=== PATIENT | female | born 1960 | race African-American/Black ===

== ENCOUNTER 2016-04-04 14:28 | Outpatient (RCR) | payer MEDICARE, BC | END 2016-05-02 | disposition home or self-care (01) | LOC: WCC 14:28 | DX: L97.523 Non-pressure chronic ulcer of other part of left foot with necrosis of muscle (principal); E08.621 Diabetes mellitus due to underlying condition with foot ulcer; E08.22 Diabetes mellitus due to underlying condition with diabetic chronic kidney disease; I70.245 Atherosclerosis of native arteries of left leg with ulceration of other part of foot; N18.6 End stage renal disease; Z89.422 Acquired absence of other left toe(s); Z89.421 Acquired absence of other right toe(s); T86.828 Other complications of skin graft (allograft) (autograft); I10 Essential (primary) hypertension; Z90.710 Acquired absence of both cervix and uterus | CPT/HCPCS: G0463 ==

== ENCOUNTER 2016-04-12 16:00 | Outpatient (RCR) | payer MEDICARE, BC | END 2016-05-02 | disposition home or self-care (01) | LOC: PTY 16:00 | DX: S98 Traumatic amputation of ankle and foot (principal); X58.XXXD Exposure to other specified factors, subsequent encounter | CPT/HCPCS: 97110; 97116; 97163; 97530; G8978; G8979 ==

== ENCOUNTER 2016-05-05 14:27 | Outpatient (RCR) | payer MEDICARE, BC | END 2016-05-30 | disposition home or self-care (01) | LOC: PTY 14:27 | DX: S98 Traumatic amputation of ankle and foot (principal); X58.XXXD Exposure to other specified factors, subsequent encounter | CPT/HCPCS: 97110; 97116; G8978; G8979 ==

== ENCOUNTER 2016-05-09 13:30 | Outpatient (RCR) | payer MEDICARE, BC | END 2016-05-30 | disposition home or self-care (01) | LOC: WCC 13:30 | DX: M60.271 Foreign body granuloma of soft tissue, not elsewhere classified, right ankle and foot (principal); E08.22 Diabetes mellitus due to underlying condition with diabetic chronic kidney disease; E08.621 Diabetes mellitus due to underlying condition with foot ulcer; Z89.421 Acquired absence of other right toe(s); N18.6 End stage renal disease; Z90.710 Acquired absence of both cervix and uterus; L03.115 Cellulitis of right lower limb; E11.51 Type 2 diabetes mellitus with diabetic peripheral angiopathy without gangrene; L84 Corns and callosities; M79.672 Pain in left foot; Z88.1 Allergy status to other antibiotic agents; I12.0 Hypertensive chronic kidney disease with stage 5 chronic kidney disease or end stage renal disease; G47.30 Sleep apnea, unspecified | CPT/HCPCS: 10060; 97110; 97116; G0463 ==

== ENCOUNTER 2016-05-31 14:00 | Outpatient (RCR) | payer MEDICARE, BC | END 2016-06-30 | disposition home or self-care (01) | LOC: PTY 14:00 | DX: S98 Traumatic amputation of ankle and foot (principal); X58.XXXD Exposure to other specified factors, subsequent encounter; Z88.2 Allergy status to sulfonamides; Z88.8 Allergy status to other drugs, medicaments and biological substances ==

== ENCOUNTER 2016-07-04 14:15 | Outpatient (RCR) | payer MEDICARE, BC | END 2016-07-30 | disposition home or self-care (01) | LOC: PTY 14:15 | DX: Z89.422 Acquired absence of other left toe(s) (principal); Z89.421 Acquired absence of other right toe(s) ==

== ENCOUNTER 2016-07-25 13:31 | Outpatient (RCR) | payer MEDICARE, BC ==
[~2016-07-25] VITALS: Ht 170.2 cm; Wt 83.9 kg
[2016-07-27] MEDS ORDERED: Neosporin Oint 15gm TOPIC ONE (11:15)
== END 2016-07-30 | disposition home or self-care (01) ==
LOC: WCC 13:31
DX: L97.512 Non-pressure chronic ulcer of other part of right foot with fat layer exposed (principal); E11.51 Type 2 diabetes mellitus with diabetic peripheral angiopathy without gangrene; M79.671 Pain in right foot; I73.89 Other specified peripheral vascular diseases; Z88.1 Allergy status to other antibiotic agents; Z90.710 Acquired absence of both cervix and uterus; G47.30 Sleep apnea, unspecified; I12.0 Hypertensive chronic kidney disease with stage 5 chronic kidney disease or end stage renal disease; E11.22 Type 2 diabetes mellitus with diabetic chronic kidney disease; N18.6 End stage renal disease; Z82.49 Family history of ischemic heart disease and other diseases of the circulatory system; Z80.9 Family history of malignant neoplasm, unspecified
CPT/HCPCS: 11042

== ENCOUNTER 2016-08-03 14:00 | Outpatient (RCR) | payer MEDICARE, BC | END 2016-08-30 | disposition home or self-care (01) | LOC: PTY 14:00 | DX: Z47.81 Encounter for orthopedic aftercare following surgical amputation (principal); Z89.422 Acquired absence of other left toe(s); Z89.421 Acquired absence of other right toe(s) ==

== ENCOUNTER 2016-08-08 13:35 | Outpatient (RCR) | payer MEDICARE, BC | END 2016-08-30 | disposition home or self-care (01) | LOC: WCC 13:35 | DX: L97.512 Non-pressure chronic ulcer of other part of right foot with fat layer exposed (principal); I73.89 Other specified peripheral vascular diseases; M79.671 Pain in right foot; E11.51 Type 2 diabetes mellitus with diabetic peripheral angiopathy without gangrene; Z88.8 Allergy status to other drugs, medicaments and biological substances; Z80.9 Family history of malignant neoplasm, unspecified; Z82.49 Family history of ischemic heart disease and other diseases of the circulatory system | CPT/HCPCS: 82962; G0463 ==

== ENCOUNTER 2016-09-26 14:13 | Outpatient (RCR) | payer MEDICARE, BC | END 2016-09-29 | disposition home or self-care (01) | LOC: WCC 14:13 | DX: L84 Corns and callosities (principal); B35.3 Tinea pedis; E11.51 Type 2 diabetes mellitus with diabetic peripheral angiopathy without gangrene; Z90.710 Acquired absence of both cervix and uterus; I12.0 Hypertensive chronic kidney disease with stage 5 chronic kidney disease or end stage renal disease; E11.22 Type 2 diabetes mellitus with diabetic chronic kidney disease; N18.6 End stage renal disease; G47.30 Sleep apnea, unspecified; Z88.6 Allergy status to analgesic agent; Z91.013 Allergy to seafood | CPT/HCPCS: G0463 ==

== ENCOUNTER 2016-10-31 14:20 | Outpatient (RCR) | payer MEDICARE, BC | END 2016-11-30 | disposition home or self-care (01) | LOC: WCC 14:20 | DX: E11.51 Type 2 diabetes mellitus with diabetic peripheral angiopathy without gangrene (principal); L84 Corns and callosities; M79.672 Pain in left foot; M79.671 Pain in right foot; Z90.710 Acquired absence of both cervix and uterus; I12.0 Hypertensive chronic kidney disease with stage 5 chronic kidney disease or end stage renal disease; E11.22 Type 2 diabetes mellitus with diabetic chronic kidney disease; N18.6 End stage renal disease; Z88.6 Allergy status to analgesic agent; Z88.8 Allergy status to other drugs, medicaments and biological substances | CPT/HCPCS: 11056 ==